=== PATIENT | male | born 1985 | race Asian ===

== ENCOUNTER 2023-07-20 08:00 | Outpatient (CLI) | payer BC ==
--- NOTE | 2023-07-20 10:45 | XRAY Report ---
PROCEDURE: Knee 3 View LT INDICATIONS: CONTUSION OF LEFT THIGH TECHNIQUE: 3 views of the left knee(s) were acquired. COMPARISON: Correlation is made with the accompanying femur plain films. FINDINGS: Bones: No fractures or dislocations. No suspicious bony lesions. The knee joint spaces appear well- preserved. Soft tissues: No knee joint effusion. No suspicious soft tissue calcifications or masses. IMPRESSION: No acute bony abnormality. Reviewed by: Diego Hdez MD on 07/20/2023 9:44 AM [place] Approved by: Diego Hdez MD on 07/20/2023 9:44 AM [place] Station ID: [id number]
--- NOTE | 2023-07-20 10:46 | XRAY Report ---
PROCEDURE: Femur 2V LT INDICATIONS: CONTUSION OF LEFT THIGH TECHNIQUE: 2 views of the femur were acquired. COMPARISON: Correlation is made with the accompanying knee plain films. FINDINGS: Bones: No fractures or dislocations. No suspicious bony lesions. Soft tissues: No suspicious soft tissue calcifications or masses. IMPRESSION: No acute bony abnormality. Reviewed by: Diego Hdez MD on 07/20/2023 9:44 AM [place] Approved by: Diego Hedz MD on 07/20/2023 9:44 AM [place] Station ID: [id number]
== END 2023-07-20 23:59 | disposition home or self-care (01) ==
LOC: DI.S 08:00
PROVIDERS: ATTEND Emergency Medicine
DX: S70.12XA Contusion of left thigh, initial encounter (principal)